=== PATIENT | female | born 1985 | race Caucasian/White ===

== ENCOUNTER 2018-07-09 13:36 | Emergency (ER) | payer OTHER ==
[~2018-07-09] VITALS: Ht 167.6 cm; Wt 77.1 kg
[~2018-07-09 13:36] MED LIST: BENTYL20 MG PO; BIRTH CONTROL; KEPPRA 500 MG500 M1; LOMOTIL TABLET1 EACH PO; PHENERGAN 25 MG25 M1 PO; XANAX 0.25 MG0.25 MG PO
[2018-07-09 14:57] VITALS: BP 110/62
== END 2018-07-09 14:57 | disposition home or self-care (01) ==
LOC: M.ERS 13:36
DX: S00.11XA Contusion of right eyelid and periocular area, initial encounter (principal); G40.909 Epilepsy, unspecified, not intractable, without status epilepticus; Z90.710 Acquired absence of both cervix and uterus; W01.10XA Fall on same level from slipping, tripping and stumbling with subsequent striking against unspecified object, initial encounter; Y93.89 Activity, other specified; Y92.89 Other specified places as the place of occurrence of the external cause; Y99.8 Other external cause status